=== PATIENT | male | born 1960 | race Caucasian/White ===

== ENCOUNTER 2016-06-05 11:21 | Day surgery (SDC) | payer OTHER ==
[2016-06-05 11:27] VITALS: BMI 27.3
--- NOTE | 2016-06-05 12:26 | PDOC ---
History of Present Illness - General History Source: Patient Exam Limitations: No Limitations - History of Present Illness Initial Comments: 06/05/16 12:25 The patient is a 56-year-old man with a past medical history of benign prostate hyperplasia who presents to the emergency department via walk in for further evaluation of progressively worsening right inguinal/scrotal swelling and discomfort over the last few weeks. He admits that he has been experiencing intermittent sensations of right inguinal/scrotal pain and swelling for the past years. He admits ignoring his symptoms,as they spontaneously resolve on its own. He notes, that for the past three months, his scrotum has been more swollen than usual. He states that for the past week, his symptoms have worsen, as his discomfort has developed into pain that radiates up to his right buttock to his right lower quadrant and down to his right posterior thigh. He describes his pain as a burning sensation. No fever, chills, generalized weakness. No urinary complaints. No nausea, vomiting. No numbness/weakness/tingling sensation to his extremities. <Tesha Goldstein - Last Filed: 06/05/16 14:32> <Constantine Macedo - Last Filed: 06/05/16 16:00> - General Chief Complaint: Pain Stated Complaint: hernia PAIN Time Seen by Provider: 06/05/16 12:25 Past History <Tesha Goldstein - Last Filed: 06/05/16 14:32> - Past Medical History Other medical history: ing.hernia - Psycho/Social/Smoking Cessation Hx Anxiety: No Suicidal Ideation: No Smoking History: Never smoked Have you smoked in the past 12 months: No Information on smoking cessation initiated: No Hx Alcohol Use: No Drug/Substance Use Hx: No Substance Use Type: None <Constantine Macedo - Last Filed: 06/05/16 16:00> - Past Medical History Allergies/Adverse Reactions: Allergies Allergy/AdvReac Type Severity Reaction Status Date / Time No Known Allergies Allergy Verified 06/05/16 11:23 Home Medications: Ambulatory Orders Unobtainable [Unobtainable] 06/05/16 Review of Systems - Review of Systems Constitutional: No: Chills, Fever Cardiac (ROS): No: Chest Pain ABD/GI: Yes: See HPI. No: Constipated, Diarrhea, Vomiting : No: Burning, Dysuria, Frequency All Other Systems: Reviewed and Negative <Constantine Macedo - Last Filed: 06/05/16 16:00> *Physical Exam - Vital Signs Last Vital Signs Temp Pulse Resp BP Pulse Ox 98.6 F 90 18 135/88 100 06/05/16 11:24 06/05/16 11:24 06/05/16 11:24 06/05/16 11:24 06/05/16 11:24 - Physical Exam Comments: 06/05/16 12:25 GENERAL: The patient is awake, alert, and fully oriented, in no acute distress. HEAD: Normal with no signs of trauma. EYES: Pupils equal, round and reactive to light, extraocular movements intact, sclera anicteric, conjunctiva clear with no pallor. ENT: Ears normal, nares patent, oropharynx clear without exudates. Moist mucous membranes. NECK: Normal range of motion, supple without lymphadenopathy, JVD, or masses. LUNGS: Breath sounds equal, clear to auscultation bilaterally. No wheeze/ crackles. HEART: Regular rate and rhythm, normal S1 and S2 without murmur or rub. ABDOMEN: Soft, tenderness to the right lower quadrant, nondistended. BS wnl. No guarding or rebound. No palpable masses. No hepatosplenomegaly. : There is a large right inguinal/scrotal hernia that is not easily reduced. BACK: There is some mild reproducible right lower buttock discomfort. EXTREMITIES: Normal range of motion, no edema. No clubbing or cyanosis. No cords, erythema, or tenderness. NEUROLOGICAL: Cranial nerves II through XII grossly intact. Normal speech, normal gait. PSYCH: Normal mood, normal affect. SKIN: Warm, Dry, normal turgor, no rashes or lesions noted. <Tesha Goldstein - Last Filed: 06/05/16 14:32> - Vital Signs Last Vital Signs Temp Pulse Resp BP Pulse Ox 98.6 F 90 18 135/88 100 06/05/16 11:24 06/05/16 11:24 06/05/16 11:24 06/05/16 11:24 06/05/16 11:24 <Constantine Macedo - Last Filed: 06/05/16 16:00> ED Treatment Course - LABORATORY CBC & Chemistry Diagram: 06/05/16 12:54 06/05/16 12:54 <Tesha Goldstein - Last Filed: 06/05/16 14:32> - LABORATORY CBC & Chemistry Diagram: 06/05/16 12:54 06/05/16 12:54 <Constantine Macedo - Last Filed: 06/05/16 16:00> Medical Decision Making - Medical Decision Making 06/05/16 14:[address] Rai Jose from [facility]. <Tesha Goldstein - Last Filed: 06/05/16 14:32> - Medical Decision Making 06/05/16 12:46 A portion of this note was documented by scribe services under my direction. I have reviewed the details of the note, within reason, and agree with the documentation with the following case summary and management plan written by me. 56-year-old male with no significant past medical history other than BPH presents with progressive right inguinal/scrotal swelling and discomfort over the last few weeks in the setting of known right inguinal hernia that is present for years. Patient does not have access to care, presents today for worsening pain and swelling over the last week, no vomiting or constipation or diarrhea. No urinary complaints. Separately, complains of some right upper buttock pain that radiates to the inguinal region and down the right thigh posteriorly. No trauma, no neuro deficit. afebrile. well appearing soft/nd. tender by RLQ and over large R inguinal hernia. no discoloration but unable to fully reduce. testicular exam otherwise normal no cvat mild midline discomfort without stepoff. reproducible R upper buttock discomfort in area of sciatic nerve. neuro intact 56-year-old male presents predominantly for worsening pain and swelling of right inguinal hernia. No symptoms consistent with obstruction, but likely incarcerated. Also with right upper buttock pain that seems most consistent with sciatica, neurologically intact. Labs, urinalysis CT of the abdomen and pelvis Pain control Surgical consult 06/05/16 14:26 No leukocytosis, lactate negative at 1.4, urinalysis clear. Awaiting CT and surgical consult. 06/05/16 14:[address] Jose, will evaluate for OR. 06/05/16 14:55 Pt has been NPO, Dr. Jose accepted the patient for admission to OR. 06/05/16 16:00 CTAP with large R inguinal hernia sac but no evidence of obstruction at this time. En route to OR. <Constantine Macedo - Last Filed: 06/05/16 16:00> *DC/Admit/Observation/Transfer - Attestations Scribe Attestion: 06/05/16 13:28 Documentation prepared by Tesha Goldstein, acting as medical social worker for Constantine Macedo MD. <Tesha Goldstein - Last Filed: 06/05/16 14:32> - Discharge Dispostion Admit: Yes <Constantine Macedo - Last Filed: 06/05/16 16:00> Diagnosis at time of Disposition: Incarcerated inguinal hernia, unilateral Inguinal hernia Qualifiers: Obstruction and gangrene presence: without obstruction or gangrene Laterality: unilateral Recurrence: not specified as recurrent Qualified Code(s): K40.90 - Unilateral inguinal hernia, without obstruction or gangrene, not specified as recurrent - Discharge Dispostion Condition at time of disposition: Fair
[2016-06-05] MEDS ORDERED: SODIUM CHLORIDE 1,000 ML IV ONE (12:43)
[2016-06-05] MEDS ORDERED: morphine CARPU-JECT 2 MG/1 ML DISP.SYRIN IVPUSH ONE (12:45)
[2016-06-05] MEDS ORDERED: morphine CARPU-JECT 2 MG/1 ML DISP.SYRIN ONE (12:59)
[2016-06-05 13:15] LABS: BASOPHIL 0.4 % (0-2.0); EOSINOPHIL 0.6 % (0-4.5); MCH 30.4 pg (25.7-33.7); MCHC 33.6 g/dl (32.0-35.9); MEAN CELL VOLUME 90.5 fl (80-96); MEAN PLT VOLUME 8.4 fl (7.5-11.1); NEUTROPHILS 61.3 % (42.8-82.8); PLATELET COUNT 154 K/MM3 (134-434); RDW 13.6 % (11.9-15.9); WHITE BLOOD COUNT 5.5 K/mm3 (4.0-10.0)
[2016-06-05 13:19] LABS: URINE APPEARANCE CLEAR; URINE BILIRUBIN NEGATIVE (NEGATIVE); URINE BLOOD NEGATIVE (NEGATIVE); URINE COLOR LTYELLOW; URINE GLUCOSE (UA) NEGATIVE (NEGATIVE); URINE KETONE NEGATIVE (NEGATIVE); URINE LEUK ESTERASE NEGATIVE (NEGATIVE); URINE NITRITE NEGATIVE (NEGATIVE); URINE PROTEIN NEGATIVE (NEGATIVE); URINE UROBILINOGEN 2.0 E.U/dl E.U./dl (0.2-1.0)
[2016-06-05 13:31] LABS: INR 1.08 (0.82-1.09); PROTHROMBIN TIME (PATIENT) 11.9 SEC (9.98-11.88)
[2016-06-05 13:40] LABS: ALBUMIN 3.3 g/dl (3.4-5.0); ALK PHOS 138 U/L (45-117); ANION GAP 9 (8-16); BILIRUBIN,TOTAL 0.4 mg/dL (0.2-1.0); CALCIUM 8.7 mg/dL (8.5-10.1); CO2 26 mmol/L (21-32); COCKROFT - GAULT 104.57; CREATININE 0.9 mg/dL (0.7-1.3); GLUCOSE,RANDOM 97 mg/dL (74-106); SGOT/AST 18 U/L (15-37); SGPT/ALT 30 U/L (12-78); TOT PROT 6.5 g/dl (6.4-8.2)
[2016-06-05] MEDS ORDERED: PROPOFOL 20 ML ONE (15:54)
[2016-06-05] MEDS ORDERED: SUCCINYLCHOLINE CHLORIDE 200 MG/10 ML VIAL ONE (15:54)
--- NOTE | 2016-06-05 16:03 | HP ---
Admitting History and Physical - Admission Chief Complaint: r groin pain History of Present Illness: patient is a 56M with chronically incarcerated R inguinal hernia presents to ER with intolerable pain. no obstructive symptoms but pain is intractable. History Source: Patient Limitations to Obtaining History: Language Barrier - Past Surgical History Additional Past Surgical History: c spine surgery - Smoking History Smoking history: Never smoked Have you smoked in the past 12 months: No - Alcohol/Substance Use Hx Alcohol Use: No Home Medications - Allergies Allergies/Adverse Reactions: Allergies Allergy/AdvReac Type Severity Reaction Status Date / Time No Known Allergies Allergy Verified 06/05/16 11:23 - Home Medications Home Medications: Ambulatory Orders Unobtainable [Unobtainable] 06/05/16 Review of Systems - Review of Systems Constitutional: denies: Chills, Fever Eyes: denies: Blind Spots, Blurred Vision HENT: denies: Difficult Swallowing, Ear Discharge Neck: denies: Decreased ROM, Lumps Cardiovascular: denies: Chest Pain, Edema Respiratory: denies: Cough, Exercise Intolerance Gastrointestinal: denies: Abdominal Pain, Bloating Genitourinary: denies: Burning, Discharge Breasts: denies: Pain, Skin Changes Musculoskeletal: denies: Back Pain, Crepitus Neurological: reports: Weakness (in R arm and legs from C spine surgery?) Endocrine: denies: Excessive Sweating, Flushing Hematology/Lymphatic: denies: Easily Bruised, Excessive Bleeding Psychiatric: denies: Altered Sleep Pattern, Anxiety Physical Examination Vital Signs: Vital Signs Temperature 98.6 F 06/05/16 11:24 Pulse Rate 84 06/05/16 14:43 Respiratory Rate 18 06/05/16 14:43 Blood Pressure 138/89 06/05/16 14:43 O2 Sat by Pulse Oximetry (%) 99 06/05/16 14:43 Constitutional: Yes: No Distress, Calm Eyes: Yes: Conjunctiva Clear, EOM Intact HENT: Yes: Atraumatic, Normocephalic Neck: Yes: Supple, Trachea Midline Cardiovascular: Yes: Regular Rate and Rhythm Respiratory: Yes: Regular Gastrointestinal: Yes: Soft, Other (R groin/testicle with very tender firm hernia.). No: Distention, Tenderness Renal/: No: CVA Tenderness - Left, CVA Tenderness - Right Breast(s): No: Nipple Inversion, Skin Changes Musculoskeletal: No: Joint Stiffness, Joint Swelling Extremities: No: Calf Tenderness, Erythema Integumentary: No: Erythema, Rash Neurological: Yes: Alert, Oriented Psychiatric: Yes: Alert, Oriented Labs: CBC, BMP 06/05/16 12:54 06/05/16 12:54 Problem List - Problems (1) Incarcerated inguinal hernia, unilateral Assessment/Plan: incarcerated R inguinal hernia to OR emergently for R inguinal herniorraphy to r/o strangulation. npo r/b/a d/w pt and he understands and wishes to proceed staff translated at bedside. Code(s): K40.30 - UNIL INGUINAL HERNIA, W OBST, W/O GANGR, NOT SPCF RECUR
[2016-06-05] MEDS ORDERED: ROCURONIUM BROMIDE 50 MG/5 ML VIAL ONE (16:46)
[2016-06-05] MEDS ORDERED: ceFAZolin SODIUM 1 GM VIAL IVPB ONE (16:50)
[2016-06-05] MEDS ORDERED: DEXAMETHASONE SOD PHOSPHATE 4 MG/1 ML VIAL ONE (16:54)
[2016-06-05] MEDS ORDERED: NEOSTIGMINE METHYLSULFATE 0.5 MG/ML - 10 ML MDV ONE (17:53)
[2016-06-05] MEDS ORDERED: KETOROLAC TROMETHAMINE 30 MG/1 ML VIAL IVPUSH ONE (17:58)
[2016-06-05] MEDS ORDERED: ONDANSETRON 4 MG/2 ML VIAL IVPB PRN (17:58)
[2016-06-05] MEDS ORDERED: oxyCODONE HCL 5 MG TABLET PO PRN ×2 (17:58)
[2016-06-05] MEDS ORDERED: LACTATED RINGERS SOLUTION 1,000 ML IV SCH (18:15)
[2016-06-05] MEDS ORDERED: KETOROLAC TROMETHAMINE 30 MG/1 ML VIAL ONE (18:40)
[2016-06-05 22:18] VITALS: BP 142/83; PULSE 72; TEMP 97.8
--- NOTE | 2016-06-05 22:25 | OP ---
DATE OF OPERATION: 06/05/2016 PREOPERATIVE DIAGNOSIS: Incarcerated right inguinal hernia. POSTOPERATIVE DIAGNOSIS: Incarcerated right inguinal hernia. Sliding hernia with indirect defect. SURGERY PERFORMED: Open right inguinal hernia repair with a plug and patch mesh. SURGEON: Rai Jose M.D. ANESTHESIA: General endotracheal anesthesia. OPERATIVE NOTE: Patient was brought to the operating room after confirming name, date of , medical record number. He was placed in supine position and SCDs for DVT prophylaxis. He was then induced and intubated by the anesthesiologist. He received appropriate perioperative antibiotics. He was then prepped and draped in the usual sterile fashion. A timeout was then performed. I marked his right inferior superior iliac spine and right pubic symphysis and created a transverse incision in of the right hernia over the external ring. I bluntly dissected down to the external oblique fascia after going through Eris's with electrocautery, and then once I identified the external ring, I used the knife to go through the very attenuated external oblique, used the Metzenbaum scissors to get the nerve off it, and then cut open the external oblique caudad towards the external ring, and then I also opened it slightly superior as well. At this point of the hernia and sac and contents was then dissected off the external oblique, and then I used my finger to get underneath onto the shelving edge, and then went towards the pubic tubercle, and then once I was able to get around the hernia I placed a 1-inch Osvaldo drain and then draped it laterally. I was able to identify the sac and dissect it off the cord, and then inadvertently got into the sac and noticed that it was peritoneum obviously and there was no bowel inside; however, there was some fat consistent with likely sliding hernia. At this point I closed it with a running 2-0 Vicryl suture and then pushed it back in. I was not able to get the lipoma of the cord off, and then I pushed it back inside the peritoneum, and then I placed a large plug, and then I sutured this plug to the internal ring with 2-0 Prolene in a [id number] fashion to tighten the internal ring. At this point, I then placed the polypropylene mesh first to the pubic tubercle, and then I ran it along the conjoined tendon, and then I secured in running fashion to the inguinal shelving edge, and then I tied it over the internal ring, and then at this point I then irrigated and aspirated to ensure perfect hemostasis and then closed the external oblique with a running 2-0 Vicryl, and then Eris with interrupted 2-0 Vicryl x3, and the skin and subcutaneous tissues were insured for hemostasis and reapproximated with 4-0 Monocryl. Dermabond was now applied. All counts were correct. RAI JOSE M.D. [id number]
--- NOTE | 2016-06-06 13:03 | EKG ---
Test Reason : Blood Pressure : / mmHG Vent. Rate : 066 BPM Atrial Rate : 066 BPM P-R Int : 170 ms QRS Dur : 070 ms QT Int : 412 ms P-R-T Axes : 030 001 040 degrees QTc Int : 431 ms NORMAL SINUS RHYTHM NORMAL ECG NO PREVIOUS ECGS AVAILABLE BASELINE ARTIFACT Confirmed by JAVAD BRAGG, INGE ([id number]) on 06/06/2016 1:03:11 PM Referred By: Confirmed By:INGE FARNSWORTH MD
== END 2016-06-05 22:30 | disposition home or self-care (01) ==
LOC: JER 11:21 → JASUSAT 14:56 → J8W 20:20 → JASUSAT 22:30
PROVIDERS: ATTEND Surgery
PROC: 0YU50JZ Supplement Right Inguinal Region with Synthetic Substitute, Open Approach (ICD-10-PCS; principal; 2016-06-05 15:00)
DX: K40.30 Unilateral inguinal hernia, with obstruction, without gangrene, not specified as recurrent (principal)
CPT/HCPCS: 36415; 74177-TC; 80053; 81003; 83605; 83690; 85025; 85610; 86850; 86900; 86901; 93005; 93010; 94760; 99284-25; Q9967